=== PATIENT | female | born 1945 | race Caucasian/White ===

== ENCOUNTER → 2018-07-03 | Outpatient (CLI) | payer MEDICARE, BC ==
[~2018-07-03] MED LIST: AMITRIPTYLINE H50 M2 PO; ASPIR 8181 MG PO; CARISOPRODOL 3350 MG PO; CIPRO500 MG PO; CLONAZEPAM 0.50.5 M1 PO; DOXYCYCLINE 10100 MG PO; FISH OIL 1,001000 M1 PO; FISH OIL 1,001000 M2 PO; FLAGYL500 MG PO; HYDROCODON-ACE1 EAC7; KEFLEX500 MG PO; LEVAQUIN 500 M500 MG PO; LISINOPRIL20 MG PO; MELATONIN3 MG PO; NORCO 5-325 TA1 EACH PO; OCUVITE TABLET1 EAC1 PO; OMEPRAZOLE 20 M20 M1 PO; PRAVASTATIN SOD20 MG PO; PROZAC 20 MG20 M1; PROZAC40 MG PO; REQUIP 0.25 M0.25 MG PO; TESSALON PERLE100 MG; TRAZODONE HCL100 MG PO; UNICOMPLEX M TA1 TA1 PO; VICODIN ES 7.51 EACH PO; ZOFRAN ODT4 MG PO
== END ==
LOC: M.MRI 11:10
DX: M47.892 Other spondylosis, cervical region (principal); M54.12 Radiculopathy, cervical region

== ENCOUNTER → 2018-12-20 | Outpatient (CLI) | payer MEDICARE, BC | LOC: M.RAD 09:00 | DX: Z12.31 Encounter for screening mammogram for malignant neoplasm of breast (principal) ==

== ENCOUNTER → 2018-12-31 | Outpatient (CLI) | payer MEDICARE, BC | LOC: M.RAD 13:00 | DX: N63.21 Unspecified lump in the left breast, upper outer quadrant (principal) ==

== ENCOUNTER → 2019-01-10 | Outpatient (CLI) | payer MEDICARE, BC ==
--- NOTE | 2019-01-14 09:06 | PATH ---
[address] [address] PATHOLOGY RPT PROCEDURE Name: MARGIE BLAKE Room: [facility].#: [id number] Admission: 01/10/19 Date of : 47 Discharge: Report #: [id number] Path Case #: [id number] [facility] Accession Number: [id number] . 01 Material submitted: . breast - LEFT BREAST, 10:00, 4CMFN. Modifiers: left, 10:00 . 01 Clinical history: . 0.74 x 0.69 x 0.69 cm mass . 02 Diagnosis: Breast, left, 10:00, 4 cm FN, core needle biopsy: - Benign breast tissue with simple cysts and focal duct ectasia. . (Please see comment) . (ROBSON:edwige; 01/11/2019) QLM/01/11/2019 . 02 Comment: This case has also been reviewed by Dr. Scooby Santana, who agrees with the diagnosis. . (SKM:edwige; 01/11/2019) . 02 Electronically signed: . Dario Calle MD, Pathologist NPI- [id number] . 01 Gross description: . Received in formalin labeled "Margie Blake, left breast 10:00, 4 cm FN," are multiple needle cores of yellow-thompson fibrofatty tissue measuring 3.2 x 1.5 x 0.6 cm in aggregate dimensions. The tissue is submitted in its entirety in cassette A1 through A3. The cold ischemic time is 6 minutes. The total formalin fixation time is approximately 9 hours. (TSD; 01/10/2019) TOB/TOB . 02 Pathologist provided ICD-10: N60.02, N60.42 . 02 CPT . 929783 Specimen Comment: A courtesy copy of this report has been sent to Specimen Comment: [phone], , . Specimen Comment: Report sent to ,DR BRANNON / DR ANN Performed at: 01 [place] [address] PATHOLOGY RPT PROCEDURE Name: MARGIE BLAKE LISY Room: [facility].#: [id number] Admission: 01/10/19 Date of : 47 Discharge: Report #: [id number] Path Case #: [id number] [address] [facility] [address], [place] [id number] MD Morgan Boogie MD Phone: [phone] Performed at: 02 [facility] [address], [place], [place] [id number] MD Isrrael Domínguez MD Phone: [phone]
== END ==
LOC: M.ULTRA 08:07
DX: N60.02 Solitary cyst of left breast (principal); N60.42 Mammary duct ectasia of left breast; I10 Essential (primary) hypertension; Z88.2 Allergy status to sulfonamides; Z91.041 Radiographic dye allergy status; Z88.8 Allergy status to other drugs, medicaments and biological substances; Z79.82 Long term (current) use of aspirin; Z79.899 Other long term (current) drug therapy; Z98.890 Other specified postprocedural states

== ENCOUNTER 2020-04-03 12:49 | Emergency (ER) | payer MEDICARE, BC ==
[~2020-04-03] VITALS: Ht 154.9 cm; Wt 72.6 kg
[2020-04-03] MEDS ORDERED: PRAVACHOL40 MG PO (13:21)
[2020-04-03] MEDS ORDERED: SERTRALINE HCL100 MG PO (13:22)
[2020-04-03] MEDS ORDERED: VITAMIN D21250 MC1 PO (13:22)
[2020-04-03] MEDS ORDERED: COZAAR 25 MG TA25 M1 PO (13:22)
[2020-04-03] MEDS ORDERED: ALPRAZOLAM ER1 MG PO (13:23)
[2020-04-03] MEDS ORDERED: CHLORTHALIDONE25 MG PO (13:23)
[2020-04-03 13:28] LABS: URINE BILIRUBIN NEGATIVE (Negative); URINE BLOOD NEGATIVE (Negative); URINE CLARITY CLEAR; URINE COLOR YELLOW; URINE GLUCOSE-RANDOM NEGATIVE (Negative); URINE KETONES NEGATIVE (Negative); URINE LEUKOCYTES-REFLEX NEGATIVE (Negative); URINE NITRITE-REFLEX NEGATIVE (Negative); URINE PROTEIN NEGATIVE (Negative); URINE UROBILINOGEN 0.2 E.U./dl (0.2-1.0)
[2020-04-03 13:35] LABS: ABSOLUTE BASOPHILS 0.1 thou/uL (0.0-0.2); ABSOLUTE EOSINOPHILS 0.4 thou/uL (0.0-0.7); ABSOLUTE LYMPHOCYTES 2.4 thou/uL (0.8-5.3); ABSOLUTE MONOCYTES 0.8 thou/uL (0.0-1.2); ABSOLUTE NEUTROPHILS 6.2 thou/uL (1.6-8.1); BASOPHILS 0.8 %; EOSINOPHILS 3.9 %; HEMATOCRIT 41.3 % (37.0-47.0); LYMPHOCYTES 24.3 %; MCH 29.8 pg (26.0-34.0); MCV 87.6 fL (80.0-100.0); MONOCYTES 8.5 %; MPV 6.8 fl. (7.2-11.1); NUCLEATED RBCS 0 /100WBC; PLATELET COUNT* 262 thou/uL (150-400); POLYS 62.5 %; RBC 4.71 mil/uL (4.20-5.00); RDW-CV 14.8 % (10.5-14.5)
[2020-04-03 13:43] LABS: CALCIUM 8.7 mg/dL (8.5-10.1); CREATININE 0.9 mg/dL (0.6-1.3)
[2020-04-03 13:44] LABS: APTT 28.2 Seconds (25.0-31.3); PROTIME 10.4 Seconds (9.20-11.50)
[2020-04-03 13:54] LABS: ALBUMIN 3.7 g/dL (3.4-5.0); TOTAL BILIRUBIN 0.6 mg/dL (<0.1-1.0); TOTAL PROTEIN 7.1 g/dL (6.4-8.2)
--- NOTE | 2020-04-03 16:45 | EKG ---
[place] [address] ELECTROCARDIOGRAM REPORT Name: DEANDRE BLAKE Room: [facility]#: [id number] Admission: 04/03/20 Attend Phys: Discharge: Date of : 47 Date of Service: 04/03/20 1259 Report #: [id number] THIS REPORT FOR: //name// [facility] ED Test Date: 2020-04-03 Test Time: 12:59:26 Pat Name: DEANDRE BLAKE Department: Room: Gender: F Public Health Social Worker: [place] : 1945 Requested By: Wan Garcia Order Number: [id number] MD: Sanjiv Alan Measurements Intervals [place] Rate: 76 P: 54 VT: 152 QRS: -24 QRSD: 119 T: 20 QT: 384 QTc: 432 Interpretive Statements Sinus rhythm Ventricular premature complex Incomplete right bundle branch block Inferior infarct, old Baseline wander in lead(s) V6 Compared to ECG 06/10/2015 11:56:18 Ventricular premature complex(es) now present Electronically Signed On 04-03-2020 16:44:50 CDT by Sanjiv Alan [email or web address] <ELECTRONICALLY SIGNED> By: Sanjiv Alan MD, [facility] 04/03/20 1644 1259 1259 Sanjiv Alan MD, [facility] /EPI
[2020-04-03 17:14] VITALS: BP 141/70
== END 2020-04-03 17:15 | disposition home or self-care (01) ==
LOC: M.ERS 12:49
PROVIDERS: Emergency Medicine
DX: R53.1 Weakness (principal); I10 Essential (primary) hypertension; E66.9 Obesity, unspecified; K21.9 Gastro-esophageal reflux disease without esophagitis; Z20.828 Contact with and (suspected) exposure to other viral communicable diseases; Z68.30 Body mass index [BMI] 30.0-30.9, adult; Z90.49 Acquired absence of other specified parts of digestive tract; Z90.721 Acquired absence of ovaries, unilateral; Z88.1 Allergy status to other antibiotic agents; Z88.2 Allergy status to sulfonamides; Z88.7 Allergy status to serum and vaccine; Z88.8 Allergy status to other drugs, medicaments and biological substances

== ENCOUNTER 2021-03-02 09:35 | Emergency (ER) | payer MEDICARE, BC ==
[~2021-03-02] VITALS: Ht 157.5 cm; Wt 90.7 kg
[~2021-03-02 09:35] MED LIST changes: +ALPRAZOLAM ER1 MG PO; +CHLORTHALIDONE25 MG PO; +COZAAR 25 MG TA25 M1 PO; +PRAVACHOL40 MG PO; +SERTRALINE HCL100 MG PO; +VITAMIN D21250 MC1 PO
[2021-03-02] MEDS ORDERED: ZINC30 MG PO (09:51)
[2021-03-02] MEDS ORDERED: FISH OIL 1,0001 EAC9 PO (09:52)
[2021-03-02] MEDS ORDERED: MAGNESIUM250 M1 PO (09:52)
[2021-03-02 10:20] LABS: ABSOLUTE BASOPHILS 0.1 thou/uL (0.0-0.2); ABSOLUTE EOSINOPHILS 0.2 thou/uL (0.0-0.7); ABSOLUTE LYMPHOCYTES 1.2 thou/uL (0.8-5.3); ABSOLUTE MONOCYTES 1.1 thou/uL (0.0-1.2); ABSOLUTE NEUTROPHILS 4.6 thou/uL (1.6-8.1); EOSINOPHILS 3.1 %; HEMATOCRIT 37.1 % (37.0-47.0); HEMOGLOBIN 12.6 gm/dL (12.0-15.0); LYMPHOCYTES 16.5 %; MCH 29.6 pg (26.0-34.0); MCV 87.3 fL (80.0-100.0); MPV 6.5 fl. (7.2-11.1); NUCLEATED RBCS 0 /100WBC; PLATELET COUNT* 249 thou/uL (150-400); POLYS 64.4 %; RBC 4.25 mil/uL (4.20-5.00); RDW-CV 13.9 % (10.5-14.5); WBC 7.1 thou/uL (4.0-11.0)
[2021-03-02 10:29] LABS: CALCIUM 8.5 mg/dL (8.5-10.1); CREATININE 0.9 mg/dL (0.6-1.3); POTASSIUM 3.7 mmol/L (3.5-5.1)
[2021-03-02 10:34] LABS: ALBUMIN 3.5 g/dL (3.4-5.0); TOTAL BILIRUBIN 0.5 mg/dL (<0.1-1.0); TOTAL PROTEIN 6.9 g/dL (6.4-8.2)
[2021-03-02] MEDS ORDERED: AZITHROMYCIN 2250 MG PO (11:44)
[2021-03-02] MEDS ORDERED: PROMETH-CODEIN 65 ML PO (11:44)
[2021-03-02 11:58] VITALS: BP 164/72
== END 2021-03-02 11:58 | disposition home or self-care (01) ==
LOC: M.ERS 09:35
PROVIDERS: Emergency Medicine
DX: J40 Bronchitis, not specified as acute or chronic (principal); Z20.822 Contact with and (suspected) exposure to COVID-19; J06.9 Acute upper respiratory infection, unspecified; I10 Essential (primary) hypertension; K21.9 Gastro-esophageal reflux disease without esophagitis; Z88.1 Allergy status to other antibiotic agents; Z88.2 Allergy status to sulfonamides; Z91.041 Radiographic dye allergy status; Z88.7 Allergy status to serum and vaccine; Z90.721 Acquired absence of ovaries, unilateral

== ENCOUNTER 2021-10-03 13:55 | Emergency (ER) | payer MEDICARE, BC ==
[~2021-10-03] VITALS: Ht 157.5 cm; Wt 90.7 kg
[~2021-10-03 13:55] MED LIST changes: +AZITHROMYCIN 2250 MG PO; +FISH OIL 1,0001 EAC9 PO; +MAGNESIUM250 M1 PO; +PROMETH-CODEIN 65 ML PO; +ZINC30 MG PO
[2021-10-03 15:49] LABS: ABSOLUTE BASOPHILS 0.1 thou/uL (0.0-0.2); ABSOLUTE EOSINOPHILS 0.7 thou/uL (0.0-0.7); ABSOLUTE LYMPHOCYTES 2.2 thou/uL (0.8-5.3); ABSOLUTE NEUTROPHILS 5.4 thou/uL (1.6-8.1); BASOPHILS 0.7 %; EOSINOPHILS 7.5 %; HEMOGLOBIN 13.5 gm/dL (12.0-15.0); LYMPHOCYTES 23.1 %; MCH 29.1 pg (26.0-34.0); MCV 88.2 fL (80.0-100.0); MONOCYTES 10.5 %; MPV 6.9 fl. (7.2-11.1); NUCLEATED RBCS 0 /100WBC; PLATELET COUNT* 339 thou/uL (150-400); POLYS 58.2 %; RBC 4.65 mil/uL (4.20-5.00); RDW-CV 13.6 % (10.5-14.5); WBC 9.3 thou/uL (4.0-11.0)
[2021-10-03 16:06] LABS: CALCIUM 8.5 mg/dL (8.5-10.1); CREATININE 0.9 mg/dL (0.6-1.3); POTASSIUM 4.3 mmol/L (3.5-5.1)
[2021-10-03 16:10] LABS: ALBUMIN 3.9 g/dL (3.4-5.0); TOTAL BILIRUBIN 0.3 mg/dL (<0.1-1.0); TOTAL PROTEIN 6.8 g/dL (6.4-8.2)
[2021-10-03 16:54] VITALS: BP 182/81
--- NOTE | 2021-10-04 11:14 | EKG ---
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[employer]: : 1945 Requested By: Ricardo Hillman Order Number: [id number] MD: Sergey Carter Measurements Intervals [place] Rate: 73 P: 44 MA: 141 QRS: -21 QRSD: 115 T: 4 QT: 414 QTc: 457 Interpretive Statements Sinus rhythm Supraventricular bigeminy Incomplete RBBB and LAFB Low voltage, precordial leads Consider anterior infarct Compared to ECG 04/03/2020 12:59:26 Atrial premature complex(es) now present Left anterior fascicular block persists Right bundle-branch block now present Low QRS voltage now present Ventricular premature complex(es) no longer present Myocardial infarct finding still present Electronically Signed On 10-04-2021 11:14:05 INTERNET MARKETING ASSISTANT by Sergey Carter [email or web address] <ELECTRONICALLY SIGNED> By: Sergey Carter MD, [facility] 10/04/21 1114 1409 1409 Sergey Carter MD, [facility] /EPI
== END 2021-10-03 16:54 | disposition home or self-care (01) ==
LOC: M.ERS 13:55
PROVIDERS: Emergency Medicine
DX: R42 Dizziness and giddiness (principal); Z20.822 Contact with and (suspected) exposure to COVID-19; I10 Essential (primary) hypertension; K21.9 Gastro-esophageal reflux disease without esophagitis; Z90.49 Acquired absence of other specified parts of digestive tract; Z98.890 Other specified postprocedural states; Z79.899 Other long term (current) drug therapy; Z88.0 Allergy status to penicillin; Z88.2 Allergy status to sulfonamides; Z88.7 Allergy status to serum and vaccine; Z91.02 Food additives allergy status